=== PATIENT | female | born 1935 | race Caucasian/White ===

== ENCOUNTER 2019-05-17 20:31 | Emergency (ER) | payer MEDICARE ==
[~2019-05-17] VITALS: Ht 149.9 cm; Wt 45.4 kg
[2019-05-17 20:45] VITALS: BP 125/78
--- NOTE | 2019-05-17 20:45 | NUR ---
TO BED # 04 AMBULATORY
--- NOTE | 2019-05-17 20:50 | NUR ---
Patient RECIEVED FROM TRIAGE AAOX3, SKIN W/D TO TOUCH, VS WNL, CHANGED INTO A GOWN, ORIENTED TO ROOM, OVERALL ASSESSMENT DONE. CHIEF C/O C/P 12/25 INTERMITTENT. PAATIENT WAS BROUGHT IN BY HER SON. ON BEDSIDE MONITOR SR, 76. PENDING EKG AND TO BE EVALUATED BY
[2019-05-17] MEDS ORDERED: ASPIRIN 81 MG TAB.CHEW PO ONE (21:00)
[2019-05-17] MEDS ORDERED: NACL 0.9% 1,000 ML IV ONE (21:00)
--- NOTE | 2019-05-17 21:02 | NUR ---
Dr. Worthy examining patient.
[2019-05-17] MEDS ORDERED: SERMDI INH (21:10)
[2019-05-17] MEDS ORDERED: ASPI-1718 PO (21:10)
[2019-05-17] MEDS ORDERED: BECL10.62 IH (21:10)
[2019-05-17] MEDS ORDERED: FERR-252 PO (21:10)
[2019-05-17] MEDS ORDERED: CYAN1TAB PO (21:10)
[2019-05-17] MEDS ORDERED: ALBU6.7H IH (21:10)
[2019-05-17] MEDS ORDERED: FISH10005 PO (21:10)
[2019-05-17] MEDS ORDERED: ALBU0.0912 INH (21:10)
[2019-05-17] MEDS ORDERED: DYR50 PO (21:10)
[2019-05-17] MEDS ORDERED: ASCO500T45 PO (21:10)
[2019-05-17] MEDS ORDERED: LOVA20TA8 PO (21:10)
--- NOTE | 2019-05-17 21:15 | NUR ---
Note deonone in EDM - 05/17/19 at 2237 by [id number] Patient RECIEVED FROM TRIAGE AAOX3, SKIN W/D TO TOUCH, VS WNL, CHANGED INTO A GOWN, ORIENTED TO ROOM, OVERALL ASSESSMENT DONE. CHIEF C/O C/P 12/25 DARY. KIRK WAS BROUGHT IN BY HER SON. ON BEDSIDE MONITOR SR, 76. PENDING EKG AND TO BE EVALUATED BY .
[2019-05-17 21:46] LABS: BASOPHILS % (AUTO) 0.5 % (0.0-2.0); EOSINOPHILS # (AUTO) 0.2 K/uL (0-0.4); EOSINOPHILS % (AUTO) 3.3 % (0.0-4.0); HEMATOCRIT 37.1 % (36-48); HEMOGLOBIN 12.5 g/dL (12.0-16.0); LYMPHOCYTES # (AUTO) 1.5 K/uL (2.5-16.5); LYMPHOCYTES % (AUTO) 22.8 % (20.5-51.1); MEAN CORPUSCULAR HEMOGLOBIN 34 pg (27-31); MEAN CORPUSCULAR HGB CONC 34 g/dL (33-37); MEAN CORPUSCULAR VOLUME 98.9 fL (80-94); MONOCYTES # (AUTO) 0.7 K/uL (0.8-1.0); MONOCYTES % (AUTO) 10.3 % (1.7-9.3); NEUTROPHILS # (AUTO) 4.1 K/uL (1.8-7.7); NEUTROPHILS % (AUTO) 63.1 % (42.2-75.2); PLATELET COUNT (AUTO) 148 K/uL (140-450); RED BLOOD CELL COUNT(AUTO) 3.75 MIL/uL (4.20-5.40); RED CELL DISTRIBUTION WIDTH 13.2 % (11.6-13.7); WHITE BLOOD COUNT (AUTO) 6.5 K/uL (4.8-10.8)
[2019-05-17 22:14] LABS: ALBUMIN 3.4 g/dL (3.4-5.0); ANION GAP 10.6 (8-16); ASPARTATE AMINOTRANSFERASE 40 U/L (15-37); CARBON DIOXIDE 31.5 mmol/L (21-32); CHLORIDE 90 mmol/L (98-107); CREATININE 1.1 mg/dL (0.6-1.3); GLUCOSE 108 mg/dL (74-106); POTASSIUM 3.1 mmol/L (3.5-5.1); SODIUM SERUM 129 mmol/L (136-145); TOTAL BILIRUBIN 0.4 mg/dL (0.0-1.0); UREA NITROGEN, BLOOD 23 mg/dL (7-18)
[2019-05-17] MEDS ORDERED: POTASSIUM CHLORIDE 10 MEQ TABER PO ONE (22:20)
--- NOTE | 2019-05-17 22:30 | NUR ---
PATIENT PENDING RE-DRAW LAB RESULTS TO DETERMINE DISPO.
--- NOTE | 2019-05-17 23:30 | NUR ---
PETIENT RESTING QUIETLY NO S/S OF DISTRESS, VOICES NO C/O C/P OR DISCOMFORT. SON AT BEDSIDE, PENDING FINAL DISPOSITION. VS STABLE, SR ON BED SIDE MONITOR.
[2019-05-17 23:56] LABS: PROTHROMBIN TIME 9.3 secs (10.8-13.4)
--- NOTE | 2019-05-18 00:40 | NUR ---
Patient discharged with v/s stable. Written and verbal after care instructions given and explained. Patient verbalized understanding. IV d/c'd and removed intact, id band removed. Ambulatory with steady gait. All questions addressed prior to discharge. Advised to follow up with PMD.
[2019-05-18 00:45] VITALS: BP 127/56
--- NOTE | 2019-05-19 14:04 | NUR ---
Late entry. Confirmed with RN that 0.9 NS IV started at 2200 completed at 0040
== END 2019-05-18 00:40 | disposition home or self-care (01) ==
LOC: MED 20:31
DX: R07.9 Chest pain, unspecified (principal); I10 Essential (primary) hypertension; Z79.899 Other long term (current) drug therapy; Z79.82 Long term (current) use of aspirin; Z88.2 Allergy status to sulfonamides; Z88.1 Allergy status to other antibiotic agents; Z88.8 Allergy status to other drugs, medicaments and biological substances
CPT/HCPCS: 36415; 71045; 80053; 83880; 84484; 85025; 85610; 85730; 93005; 99284; J7030; Q0092

== ENCOUNTER 2021-11-05 13:16 | Emergency (ER) | payer MEDICARE ==
[~2021-11-05] VITALS: Ht 152.4 cm; Wt 49.0 kg
[~2021-11-05 13:16] MED LIST: ALBU6.7H IH; ASCO500T95 PO; ASPI-1822 PO; BECL10.62 IH; CYAN1TAB PO; DYR50 PO; FERR-252 PO; FISH10005 PO; LOVA20TA8 PO; [UNRECOGNIZED DRUG - CODE] INH
[2021-11-05 13:20] VITALS: BP 149/58
--- NOTE | 2021-11-05 13:24 | NUR ---
PT AMBULATED TO ER BED 7
--- NOTE | 2021-11-05 13:26 | NUR ---
86 Y/O FEMALE C/O INTERMITTENT EPISODES OF SHARP CHEST PAIN SINCE THIS MORNING, DENIES TAKING PAIN MEDS. PT DENIES SOB/NAUSEA/VOMITING. PT IS ABLE TO SPEAK IN FULL SENTENCES. PT DENIES FEVER/CHILLS/COUGH. PT CURRENTLY STATES SHE FEELS MUCH BETTER, BUT STILL WANTS TO BE EVALUATED. PT ALERT AND ORIENTED X4. BED LOCKED IN LOWEST POSITION, BED RAIL X1. PMH: DENIES ALLERGIES: SILVANA ADDISON
--- NOTE | 2021-11-05 13:44 | NUR ---
DR SENIOR AT BEDSIDE EVALUATING PT
--- NOTE | 2021-11-05 13:45 | NUR ---
XR AT PT BEDSIDE
[2021-11-05 14:14] LABS: BASOPHILS # (AUTO) 0.1 K/uL (0.00-0.22); BASOPHILS % (AUTO) 1.6 % (0.0-2.0); EOSINOPHILS # (AUTO) 0.9 K/uL (0-0.4); HEMATOCRIT 37.2 % (36-48); HEMOGLOBIN 12.6 g/dL (12.0-16.0); LYMPHOCYTES % (AUTO) 27.5 % (20.5-51.1); MEAN CORPUSCULAR HEMOGLOBIN 33 pg (27-31); MEAN CORPUSCULAR HGB CONC 34 g/dL (33-37); MEAN CORPUSCULAR VOLUME 95.8 fL (80-94); MONOCYTES # (AUTO) 0.8 K/uL (0.8-1.0); MONOCYTES % (AUTO) 10.8 % (1.7-9.3); NEUTROPHILS # (AUTO) 3.5 K/uL (1.8-7.7); NEUTROPHILS % (AUTO) 48.1 % (42.2-75.2); PLATELET COUNT (AUTO) 173 K/uL (140-450); RED BLOOD CELL COUNT(AUTO) 3.89 MIL/uL (4.20-5.40); WHITE BLOOD COUNT (AUTO) 7.2 K/uL (4.8-10.8)
[2021-11-05 14:33] LABS: ALBUMIN 3.4 g/dL (3.4-5.0); ANION GAP 9.9 (8-16); ASPARTATE AMINOTRANSFERASE 21 U/L (15-37); CARBON DIOXIDE 28.8 mmol/L (21-32); CHLORIDE 103 mmol/L (98-107); CREATININE 0.9 mg/dL (0.6-1.3); GLUCOSE 102 mg/dL (74-106); POTASSIUM 3.7 mmol/L (3.5-5.1); SODIUM SERUM 138 mmol/L (136-145); TOTAL BILIRUBIN 0.5 mg/dL (0.0-1.0); UREA NITROGEN, BLOOD 21 mg/dL (7-18)
[2021-11-05] MEDS ORDERED: ASPIRIN 81 MG TAB.CHEW PO ONE (14:35)
--- NOTE | 2021-11-05 15:38 | NUR ---
LIS SABILLON WALKED TO LAB
--- NOTE | 2021-11-05 16:42 | NUR ---
PT RESTING IN NO APPARENT DISTRESS, BREATHING EVEN AND UNLABORED. VSS. PATIENTS JOSÉ MIGUEL MANUEL AT BEDSIDE.
--- NOTE | 2021-11-05 17:18 | NUR ---
PT STATES HER PAIN IS MUCH IMPROVED. VSS. WILL CONTINUE TO MONITOR PATIENTS SON MAR AT BEDSIDE.
[2021-11-05 18:42] VITALS: BP 146/59
--- NOTE | 2021-11-05 18:44 | NUR ---
Patient discharged with v/s stable. Written and verbal after care instructions given and explained. Patient verbalized understanding. Ambulatory with steady gait. All questions addressed prior to discharge. Advised to follow up with PMD.
== END 2021-11-05 18:44 | disposition home or self-care (01) ==
LOC: MED 13:16
DX: R07.9 Chest pain, unspecified (principal); Z20.822 Contact with and (suspected) exposure to COVID-19; R61 Generalized hyperhidrosis; R06.02 Shortness of breath; J45.909 Unspecified asthma, uncomplicated; I10 Essential (primary) hypertension; Z88.1 Allergy status to other antibiotic agents; Z88.2 Allergy status to sulfonamides; Z79.899 Other long term (current) drug therapy; Z79.82 Long term (current) use of aspirin
CPT/HCPCS: 36415; 71045; 80053; 83880; 84484; 85025; 93005; 99285

== ENCOUNTER 2023-10-22 15:54 | Emergency (ER) | payer MEDICARE ==
[~2023-10-22] VITALS: Ht 149.9 cm; Wt 45.1 kg
[~2023-10-22 15:54] MED LIST changes: -ALBU6.7H IH; +ALBU6.7H6 IH
[2023-10-22 16:08] VITALS: BP 176/78; PULSE 82; RESP 16; TEMP 98.3; O2SAT 98
[2023-10-22 16:46] LABS: BASOPHILS # (AUTO) 0.1 K/uL (0.00-0.22); BASOPHILS % (AUTO) 0.8 % (0.0-2.0); EOSINOPHILS # (AUTO) 0.9 K/uL (0-0.4); EOSINOPHILS % (AUTO) 11.1 % (0.0-4.0); HEMATOCRIT 38.2 % (36-48); LYMPHOCYTES # (AUTO) 1.5 K/uL (2.5-16.5); LYMPHOCYTES % (AUTO) 18.5 % (20.5-51.1); MEAN CORPUSCULAR HEMOGLOBIN 33 pg (27-31); MEAN CORPUSCULAR HGB CONC 34 g/dL (33-37); MEAN CORPUSCULAR VOLUME 97.2 fL (80-94); MONOCYTES # (AUTO) 0.5 K/uL (0.8-1.0); MONOCYTES % (AUTO) 6.6 % (1.7-9.3); NEUTROPHILS # (AUTO) 5.1 K/uL (1.8-7.7); PLATELET COUNT (AUTO) 186 K/uL (140-450); RED BLOOD CELL COUNT(AUTO) 3.93 MIL/uL (4.20-5.40); RED CELL DISTRIBUTION WIDTH 13.9 % (11.6-13.7)
[2023-10-22 16:57] LABS: ANION GAP 9.8 (8-16); CALCIUM 9.2 mg/dL (8.5-10.1); CARBON DIOXIDE 30.7 mmol/L (21-32); CHLORIDE 102 mmol/L (98-107); CREATININE 0.9 mg/dL (0.6-1.3); GLUCOSE 121 mg/dL (74-106); POTASSIUM 3.5 mmol/L (3.5-5.1); SODIUM SERUM 139 mmol/L (136-145); UREA NITROGEN, BLOOD 16 mg/dL (7-18)
[2023-10-22 18:24] VITALS: TEMP 98.1
[2023-10-22 19:53] VITALS: BP 170/79; PULSE 74; RESP 10; O2SAT 96
== END 2023-10-22 20:30 | disposition home or self-care (01) ==
LOC: MED 15:54
DX: R07.89 Other chest pain (principal); I10 Essential (primary) hypertension; Z88.2 Allergy status to sulfonamides; Z88.8 Allergy status to other drugs, medicaments and biological substances; Z79.899 Other long term (current) drug therapy
CPT/HCPCS: 36415; 71045; 80048; 84484; 85025; 93005; 99285